=== PATIENT | male | born 1930 | race Caucasian/White ===

== ENCOUNTER → 2018-02-18 | Outpatient (CLI) | payer OTHER ==
[~2018-02-18] MED LIST: BACTRIM DS TAB1 EACH PO; FLOMAX0.4 MG PO; HYDRALAZINE 2525 MG PO; NORVASC10 MG PO; UNICOMPLEX M TA1 TA1 PO
--- NOTE | 2018-02-18 14:18 | 2DMMODE ---
[place] [id number] 2 D/M-MODE ECHOCARDIOGRAM Name: JORDAN LYLE Room: [facility]#: [id number] Admission: 02/18/18 Attend Phys: Saeid De La Cruz, Discharge: Date of : 32 Date of Service: 02/18/18 1418 Report #: [id number] THIS REPORT FOR: //name// APPROVED REPORT Study performed: 02/18/2018 09:05:46 EXAM: Comprehensive 2D, Doppler, and color-flow Echocardiogram Patient Location: Out-Patient Status: routine BSA: 1.81 HR: 68 bpm BP: 160/80 mmHg Other Information Study Quality: Excellent Indications Murmur 2D Dimensions LVEF(%): 60.36 (>50%) IVSd: 15.58 (7-11mm) LVOT Diam: 20.21 (18-24mm) LVDd: 40.29 mm PWd: 10.92 (7-11mm) Ascending Ao: 28.73 (22-36mm) LVDs: 27.49 (25-40mm) Aortic Root: 27.99 mm Sparks's LVEF: 60.36 % Volumes Left Atrial Volume (Systole) LA ESV Index: 23.30 mL/m2 Aortic Valve AoV Peak Clay.: 1.20 m/s AO Peak Gr.: 5.80 mmHg LVOT Max P.56 mmHg AO Mean Gr.: 3.50 mmHg LVOT Mean P.98 mmHg LVOT Max V: 1.18 m/s AO V2 VTI: 29.53 cm LVOT Mean V: 0.80 m/s VIBHA (VTI): 3.63 cm2 LVOT V1 VTI: 33.41 cm Mitral Valve E/A Ratio: 0.74 MV Decel. Time: 273.50 [place] [address] 2 D/M-MODE ECHOCARDIOGRAM Name: JORDAN LYLE Room: [facility]#: [id number] Admission: 02/18/18 Attend Phys: Saeid De La Cruz, Discharge: Date of : 32 Date of Service: 02/18/18 1418 Report #: [id number] MV E Max Clay.: 0.81 m/s MV PHT: 79.31 ms MVA (PHT): 2.77 cm2 TDI E/Lateral E': 10.13 E/Medial E': 13.50 Medial E' Clay.: 0.06 m/s Lateral E' Clay.: 0.08 m/s Pulmonary Valve PV Peak Clay.: 1.15 m/s PV Peak Gr.: 5.28 mmHg Left Ventricle The left ventricle is normal size. mild hypokinesis noted of the base of the inferior wall There is normal left ventricular wall thickness. Left ventricular systolic function is normal. The left ventricular ejection fraction is within the normal range. LVEF is 55-60%. Grade I - abnormal relaxation pattern. Right Ventricle The right ventricle is normal size. The right ventricular systolic function is normal. Atria The left atrium size is normal. The right atrium size is normal. Aortic Valve Aortic valve is thickened but has adequate excursion. No aortic regurgitation is present. There is no aortic valvular stenosis. Mitral Valve Mild mitral annular calcification. The mitral valve is mildly thickened. Mild mitral regurgitation. No evidence of mitral valve stenosis. Tricuspid Valve The tricuspid valve is normal in structure. Trace tricuspid regurgitation. Pulmonic Valve The pulmonary valve is normal in structure. Mild pulmonic regurgitation[place] [address] 2 D/M-MODE ECHOCARDIOGRAM Name: JORDAN LYLE Room: [facility]#: [id number] Admission: 02/18/18 Attend Phys: Saeid De La Cruz, Discharge: Date of : 32 Date of Service: 02/18/18 1418 Report #: [id number] The aortic root is normal in size. IVC is normal in size and collapses with >50% inspiration Pericardium There is no pericardial effusion. <Conclusion> mild hypokinesis noted of the base of the inferior wall LVEF is 55-60%. Aortic valve is thickened but has adequate excursion. <ELECTRONICALLY SIGNED> By: Jorge Mane MD, [facility] 02/18/18 1418 1418 1418 Jorge Mane MD, FAC /INF
== END ==
LOC: M.CRD 08:30
DX: I50.32 Chronic diastolic (congestive) heart failure (principal); I34.0 Nonrheumatic mitral (valve) insufficiency

== ENCOUNTER → 2018-05-06 | Outpatient (CLI) | payer OTHER ==
[2018-05-06 13:48] LABS: CALCIUM 9.8 mg/dL (8.5-10.1); CREATININE 1.3 mg/dL (0.6-1.3); POTASSIUM 4.4 mmol/L (3.5-5.1)
== END ==
LOC: M.LAB 13:24
PROVIDERS: Internal Medicine Cardiovascular Disease
DX: N18.3 Chronic kidney disease, stage 3 (moderate) (principal)